=== PATIENT | male | born 1990 | race Caucasian/White ===

== ENCOUNTER 2019-04-16 11:17 | Emergency (ER) | payer MEDICAID, BC ==
[2019-04-16] MEDS: IBUPROFEN 600 MG TAB PO (12:06)
[2019-04-16] MEDS: DIPHTH/TET/ACEL PERTUSS (ADULT) 0.5 ML VIAL IM* (12:07)
== END 2019-04-16 13:51 | disposition home or self-care (01) ==
LOC: FTE 11:17
DX: S91.331A Puncture wound without foreign body, right foot, initial encounter (principal); W45.0XXA Nail entering through skin, initial encounter; Y92.9 Unspecified place or not applicable; Z23 Encounter for immunization
CPT/HCPCS: 73630; 90471; 90715; 99283-25